=== PATIENT | male | born 1995 | race Caucasian/White ===

== ENCOUNTER 2016-09-03 17:05 | Emergency (ER) | payer MEDICAID, OTHER ==
[2016-09-03 17:12] VITALS: BP 120/68; PULSE 68; RESP 16; TEMP 97.9; O2SAT 99
--- NOTE | 2016-09-03 18:09 | EDPHY ---
General - History Smoking Status: Never smoked Narrative: The patient was evaluated and managed by the physician's boilermaker's assistant. My cosignature indicates that I reviewed the chart and I agree with the findings and plan of care as documented. I am the secondary supervising physician. ( Deanne Mendoza) CHIEF COMPLAINT: Right great toe pain HISTORY OF PRESENT ILLNESS: complains of right toe pain since May 2016. He says he was at a [employer] party on Halloween when he slipped, causing the right great toe to plantar flex under the foot. Since that time he has had mild-to- moderate pain about the IP joint of the toe. This radiates into the MTP joint but not into the mid foot. No injury to the ipsilateral heel, ankle or knee. [id number] pain is worse with palpation and ambulation. He attempted to wear a cm and without improvement. Has not been seen by anybody. No other associated complaints or modifying factors. No bleeding disorders. REVIEW OF SYSTEMS: Ten systems reviewed and are negative unless otherwise noted in the HPI EXAMINATION General Appearance: Alert, no distress Head: normocephalic, atraumatic ENT, Mouth: Mucous membranes moist Neck: Normal inspection Respiratory: No dyspnea or retractions. No distress Cardiovascular: Pulses normal throughout Symmetric DP and PT pulses at 2+. Brisk cap refill Gastrointestinal: No distention Neurological: A&O, sensory symmetric, strength symmetric Skin: Warm and dry, no rash. No ecchymosis or erythema Extremities: mild tenderness to palpation of the right great toe at the MTP joint. No midfoot tenderness. No heel tenderness. Range of motion fully intact. Psychiatric: Mood and affect normal MDM: Right great toe injury approximately 2 months ago. I informed the patient the nature of the injury that we are unlikely to be of the finding on the x-ray , given the likelihood that this is a soft tissue injury. But he requested we obtain an x-ray to rule out fracture. This has been ordered. He has no neurovascular abnormalities on examination. 6:30PM sprain of the great toe without any fracture on x-ray. No dislocation. No other abnormality. Discharged home with symptomatic care and instructions to follow up with Orthopedics for definitive care. Patient is comfortable with this plan and discharged home stable condition. ED Precautions: Worsening pain. Erythema, edema, cyanosis, pallor, paresthesia or anesthesia. SUPERVISION: This patient was independently evaluated without the aide of supervising physician. (Chaka Pathak) - Objective Vital Signs: Initial Vital Signs Temperature (C) 97.9 F 09/03/16 17:10 Heart Rate 68 09/03/16 17:10 Respiratory Rate 16 09/03/16 17:10 Blood Pressure 120/68 09/03/16 17:10 O2 Sat (%) 99 09/03/16 17:10 O2 Delivery Mode Room Air O2 (L/minute) 97 Allergies/Adverse Reactions: No Known Allergies Allergy (Unverified 09/03/16 17:10) Home Medications: Medication Instructions Recorded NK [No Known Home Meds] 09/03/16 Departure - Departure Disposition: Home, Routine, Self-Care Clinical Impression: Injury of toe on right foot Condition: Good Instructions: Arthralgia (ED), Tendinitis (ED) Additional Instructions: Follow with primary care or Orthopedics or Podiatry for definitive care. Referrals: NONE *PRIMARY CARE P,. [Primary Care Provider] - As per Instructions Kami Arreola MD [Medical Doctor] - As per Instructions
--- NOTE | 2016-09-03 18:29 | DX ---
Right toes, 3 views. HISTORY: Great toe pain. FINDINGS: Normal alignment. Joint spaces are maintained. No fracture identified. IMPRESSION: Negative right toe radiographs.
== END 2016-09-03 18:46 | disposition home or self-care (01) ==
DX: S99.921A Unspecified injury of right foot, initial encounter (principal); W18.40XA Slipping, tripping and stumbling without falling, unspecified, initial encounter

== ENCOUNTER → 2017-01-13 | Outpatient (CLI) | payer MEDICAID | LOC: FIMAGING 13:27 | PROVIDERS: ATTEND Internal Medicine Endocrinology, Diabetes & Metabolism | PROC: CW1NGZZ Planar Nuclear Medicine Imaging of Whole Body using Iodine 131 (I-131) (ICD-10-PCS; principal; 2017-01-13) | DX: C73 Malignant neoplasm of thyroid gland (principal) | CPT/HCPCS: 78018; 79005; A9517 ==